=== PATIENT | male | born 1985 | race Caucasian/White ===

== ENCOUNTER → 2017-05-11 | Outpatient (CLI) | payer BC, OTHER ==
--- NOTE | 2017-05-11 19:02 | Diagnostic Imaging Report ---
PROCEDURE: MRI left joint lower extremity without contrast. TECHNIQUE: Multiplanar, multisequence non contrast-enhanced MRI of the left lower extremity was accomplished. INDICATION: Soccer injury, pain. FINDINGS: There is full-thickness rupture of the ACL at its upper one-third. The PCL is intact. The patellar and quadriceps tendons are intact. There is thickening of the right medial collateral ligament compatible with its strain. There is some edema deep and superficial to that structure which showed no evidence for full-thickness transection. There is a small knee joint effusion as well as diffuse subcutaneous edema and fluid dissecting along the knee posteriorly. The popliteus was intact. The patellar and trochlear articular cartilage intact. This is a probable tear nondisplaced and incomplete posterior horn medial meniscus. No meniscal displacement. The meniscal roots were intact. There is marrow edema involving the lateral greater than medial tibial plateaus posteriorly without articular depression or discrete fracture line. There is contusion to the lateral femoral condyle also without impaction. There is bone bruise to the lateral cortex of the lateral femoral condyle. IMPRESSION: ACL rupture. MCL strain. Tibiofemoral contusions without fracture. Probable tear nondisplaced of posterior horn of medial meniscus. Joint effusion and soft tissue swelling and edema dissecting posteriorly. No hyaline articular cartilage injury apparent. Dictated by: Dictated on workstation # [id number]
== END ==
LOC: RAD 17:39
PROVIDERS: ATTEND Nurse Practitioner Family
DX: S83.512A Sprain of anterior cruciate ligament of left knee, initial encounter (principal); S83.412A Sprain of medial collateral ligament of left knee, initial encounter; M25.462 Effusion, left knee; R60.0 Localized edema; X58.XXXA Exposure to other specified factors, initial encounter; Y99.8 Other external cause status
CPT/HCPCS: 73721